=== PATIENT | male | born 1975 | race Caucasian/White ===

== ENCOUNTER 2023-11-14 08:05 | Outpatient (CLI) | payer BC | END 2023-11-14 08:06 | disposition home or self-care (01) | LOC: BICULT 08:05 | PROVIDERS: ATTEND Internal Medicine Gastroenterology | DX: R79.89 Other specified abnormal findings of blood chemistry (principal); R19.4 Change in bowel habit; K82.4 Cholesterolosis of gallbladder; K82.8 Other specified diseases of gallbladder; Z86.19 Personal history of other infectious and parasitic diseases; Z86.010 Personal history of colon polyps | CPT/HCPCS: 76705 ==